=== PATIENT | female | born 1990 ===

== ENCOUNTER 2017-11-16 10:41 | Emergency (ER) | payer MEDICAID | END 2017-11-16 10:54 | disposition home or self-care (01) | LOC: C.ER 10:41 | DX: O26.92 Pregnancy related conditions, unspecified, second trimester (principal); J06.9 Acute upper respiratory infection, unspecified; Z3A.25 25 weeks gestation of pregnancy ==

== ENCOUNTER 2017-11-16 11:36 | Emergency (ER) | payer MEDICAID ==
[2017-11-16 11:40] VITALS: BP 102/69; PULSE 98; TEMP 98.5; O2SAT 100
--- NOTE | 2017-11-16 12:58 | C.PDOC ---
History Of Present Illness SORE THROAT X 2 DAYS. NO FEVER. +NASAL CONGESTION, COUGH. NO SOB, WHEEZE. DENIES ASTHMA. +PREG EXAM NONTOXIC HEENT THROAT CLEAR; +SINUS ROHIT W CLEAR RHINORRHEA LUNGS CT AB/L NO W/R/R REMAINDER NEG MDM D/W DR RUTLEDGE, PT ABLE TO TAKE SUDAFED AND ROBITUSSIN NEEDED FOR SX. Time Seen by Provider: 11/16/17 12:14 Chief Complaint (Nursing): ENT Problem History Per: Patient History/Exam Limitations: no limitations Onset/Duration Of Symptoms: Days (2) Past Medical History Reviewed: Historical Data, Nursing Documentation, Vital Signs Vital Signs: Last Vital Signs Temp 98.5 F 11/16/17 11:38 Pulse 98 H 11/16/17 11:38 Resp 18 11/16/17 11:38 BP 102/69 11/16/17 11:38 Pulse Ox 100 11/16/17 13:03 Family History: States: No Known Family Hx - Social History Hx Alcohol Use: No Hx Substance Use: No - Immunization History Hx Tetanus Toxoid Vaccination: No Hx Influenza Vaccination: No Hx Pneumococcal Vaccination: No Review Of Systems Except As Marked, All Systems Reviewed And Found Negative. Constitutional: Negative for: Fever ENT: Positive for: Nose Congestion, Throat Pain (sore throat) Respiratory: Positive for: Cough. Negative for: Shortness of Breath, Wheezing Gastrointestinal: Negative for: Abdominal Pain Physical Exam - Physical Exam Appears: Non-toxic, No Acute Distress Skin: Warm, Dry, No Rash Head: Atraumatic, Normacephalic Eye(s): bilateral: Normal Inspection, PERRL, EOMI Nose: Discharge (sinus congestion with clear rhinorrhea) Oral Mucosa: Moist Throat: Normal, No Erythema, No Exudate, No Drooling Respiratory: Normal Breath Sounds, No Rales, No Rhonchi, No Stridor, No Wheezing Extremity: Normal ROM, No Swelling Neurological/Psych: Oriented x3, Normal Speech, Normal Motor ED Course And Treatment O2 Sat by Pulse Oximetry: 100 (RA) Pulse Ox Interpretation: Normal Medical Decision Making Medical Decision Making: NOTE: Case discussed with Dr. Rutledge, patient is able to take Sudafed and robitussin as needed for the symptoms. Disposition Counseled Patient/Family Regarding: Diagnosis, Need For Followup - Disposition Referrals: YOUR,PMD [Other] Disposition: HOME/ ROUTINE Disposition Time: 13:02 Condition: GOOD Additional Instructions: TAKE SUDAFED AND ROBITUSSIN DM DIRECTED FOR COUGH AND CONGESTION. Instructions: Upper Respiratory Infection (ED) Forms: [employer] (Fijian) - Clinical Impression Clinical Impression: Upper respiratory infection, viral - Scribe Statement The provider has reviewed the documentation as recorded by the Kaidenibkori Hawthorne Provider Attestation: All medical record entries made by the Kaidenibkori were at my direction and personally dictated by me. I have reviewed the chart and agree that the record accurately reflects my personal performance of the history, physical exam, medical decision making, and the department course for this patient. I have also personally directed, reviewed, and agree with the discharge instructions and disposition.
[2017-11-16 13:20] VITALS: RESP 16
== END 2017-11-16 13:00 | disposition home or self-care (01) ==
LOC: C.ER 11:36
DX: J06.9 Acute upper respiratory infection, unspecified (principal)